=== PATIENT | male | born 1980 | race Caucasian/White ===

== ENCOUNTER 2018-03-08 11:15 | Emergency (ER) | payer BC, OTHER ==
[~2018-03-08] VITALS: Ht 175.3 cm; Wt 93.0 kg
[2018-03-08 11:20] VITALS: BP 152/96; PULSE 99; RESP 18; TEMP 97.7; O2SAT 96
[2018-03-08 11:25] VITALS: BP 152/96; PULSE 105; RESP 18
[2018-03-08 11:29] VITALS: O2SAT 96
[2018-03-08] MEDS ORDERED: SODIUM CHLORID 0.9% 500 ML INJ 500 ML IV ONE (11:30)
[2018-03-08] MEDS ORDERED: DIAZEPAM 10 MG TAB PO ONE (11:30)
[2018-03-08] MEDS ORDERED: KETOROLAC TROMETHAMINE 30 MG/ML (IVP) VIAL IV PUSH ONE (11:30)
--- NOTE | 2018-03-08 11:37 | RADRPT ---
EXAM DATE/TIME: 03/08/2018 11:24 [place] COMPARISON: No previous studies available for comparison. INDICATIONS : Chest pain and short of breath for 1 week. MEDICAL HISTORY : None. SURGICAL HISTORY : None. ENCOUNTER: Initial ACUITY: 1 week PAIN SCORE: 5/10 LOCATION: Bilateral chest FINDINGS: Portable AP view of the chest demonstrates a normal-sized cardiac silhouette. No effusion, consolidat ion, or pneumothorax is visualized. The bones and soft tissues demonstrate no acute abnormality. Bila teral nipple piercings are present. CONCLUSION: No acute cardiopulmonary abnormality is identified. Guero Rodriguez MD on March 08, 2018 at 11:34 Board Certified Radiologist. This report was verified electronically.
[2018-03-08 11:42] LABS: HEMATOCRIT 46.9 % (39.0-51.0); HEMOGLOBIN 15.6 GM/DL (13.0-17.0); MEAN CORPUSCULAR HEMOGLOBIN 29.8 PG (27.0-34.0); MEAN CORPUSCULAR HGB CONC 33.2 % (32.0-36.0); MEAN PLATELET VOLUME 8.4 FL (7.0-11.0); PLATELET COUNT 219 TH/MM3 (150-450); RED BLOOD COUNT 5.21 MIL/MM3 (4.50-5.90); RED CELL DISTRIBUTION WIDTH 12.7 % (11.6-17.2); WHITE BLOOD COUNT 9.4 TH/MM3 (4.0-11.0)
[2018-03-08] MEDS ORDERED: DICL1CAP3 PO (11:45)
[2018-03-08] MEDS ORDERED: CYCL10TA PO (11:45)
[2018-03-08] MEDS ORDERED: DIAZEPAM 5 MG TAB PO ONE (11:45)
[2018-03-08] MEDS ORDERED: OXYC1TAB35 PO (11:45)
[2018-03-08 11:53] LABS: CHLORIDE 101 MEQ/L (98-107); SODIUM (NA) 138 MEQ/L (136-145)
[2018-03-08 11:55] VITALS: BP 145/88; PULSE 88; RESP 17; O2SAT 98
[2018-03-08 11:56] LABS: CALCIUM 9.4 MG/DL (8.5-10.1)
[2018-03-08 11:57] LABS: ALBUMIN 4.4 GM/DL (3.4-5.0); BICARBONATE 30.6 MEQ/L (21.0-32.0); BLOOD UREA NITROGEN 17 MG/DL (7-18); GLUCOSE,RANDOM 102 MG/DL (74-106)
[2018-03-08 12:00] LABS: ALT (GPT) 128 U/L (12-78); AST (GOT) 60 U/L (15-37); GLOMERULAR FILTRATION RATE 76 ML/MIN (>89); INTERNATIONAL NORMALIZED RATIO 0.9 RATIO; PROTHROMBIN TIME - PATIENT 9.5 SEC (9.8-11.6)
[2018-03-08 12:01] LABS: TOTAL BILIRUBIN ADULT 0.8 MG/DL (0.2-1.0); TOTAL PROTEIN 8.3 GM/DL (6.4-8.2)
[2018-03-08 12:03] LABS: ALKALINE PHOSPHATASE 75 U/L (45-117); D-DIMER 0.33 MG/L FEU (0.00-0.50)
[2018-03-08 12:05] LABS: TROPONIN I LESS THAN 0.02 NG/ML (0.02-0.05)
[2018-03-08 12:11] LABS: LYMPHOCYTES 29 % (9-44); MONOCYTES 9 % (0-8); NEUTROPHIL # MANUAL DIFF 5.5 TH/MM3 (1.8-7.7); POLYS (SEG NEUTROPHILS) 59 % (16-70)
--- NOTE | 2018-03-08 12:56 | PD ---
HPI Chief Complaint: Chest Pain Time Seen by Provider: 11:21 Travel History International Travel<30 days: No Contact w/Intl Traveler<30days: No Traveled to known affect area: No History of Present Illness HPI Patient is a 37 year old male who comes in complaining of chest pain for 2-3 days. He says the pain is in his neck, his pectoralis muscle and his back. He tried taking Flexeril and oxycodone at home without relief. He says he has not been working out recently. He denies any injuries. He says that movement makes the pain worse. He denies shortness of breath. He denies nausea or vomiting. He denies any stimulant use or drug use. He denies family history of heart problems. Severity is mild to moderate. PFSH Past Medical History Medical other: Yes (CHRONIC BACK PAIN) Past Surgical History Other Surgery: Yes (BACK SURGERY WITH RODS) Social History Alcohol Use: Yes (OCCAS) Tobacco Use: Yes (OCCAS) Substance Use: No Allergies-Medications (Allergen,Severity, Reaction): Coded Allergies: No Known Allergies (Unverified , 03/08/18) Reported Meds & Prescriptions Reported Meds & Active Scripts Active Reported Oxycodone-Acetaminophen 7.5-325 mg Tab 1 Tab PO BID PRN Flexeril (Cyclobenzaprine HCl) 10 Mg Tab 10 Mg PO BID Zorvolex (Diclofenac) 18 Mg Cap 18 Mg PO BID Review of Systems Except as stated in HPI: all other systems reviewed are Neg General / Constitutional: No: Fever, Chills HENT: No: Headaches, Lightheadedness Cardiovascular: Positive: Chest Pain or Discomfort Respiratory: No: Shortness of Breath Gastrointestinal: No: Nausea, Vomiting Musculoskeletal: Positive: Myalgias Skin: No Rash, No Change in Pigmentation Neurologic: No: Weakness, Dizziness Physical Exam Narrative GENERAL: Awake and alert, in no acute distress. SKIN: Focused skin assessment warm/dry. No wounds or signs of infection. HEAD: Atraumatic. Normocephalic. EYES: Pupils equal and round. No scleral icterus. ENT: Mucous membranes pink and moist. NECK: Trachea midline. No JVD. Pain with turning of his head. CARDIOVASCULAR: Regular rate and rhythm. No murmur appreciated. RESPIRATORY: No accessory muscle use. Clear to auscultation. Breath sounds equal bilaterally. GASTROINTESTINAL: Abdomen soft, non-tender, nondistended. MUSCULOSKELETAL: No obvious deformities. No clubbing. No cyanosis. No edema. Pain is just caused by lifting his arms above his head. NEUROLOGICAL: Awake and alert. No obvious cranial nerve deficits. Motor grossly within normal limits. Normal speech. PSYCHIATRIC: Appropriate mood and affect; insight and judgment normal. Data Data Last Documented VS Vital Signs Date Time Temp Pulse Resp B/P (MAP) Pulse Ox O2 Delivery O2 Flow Rate FiO2 03/08/18 12:58 88 18 137/86 (103) 97 03/08/18 11:30 Room Air 03/08/18 11:20 97.7 Orders Orders Electrocardiogram (03/08/18 11:20) Complete Blood Count With Diff (03/08/18 11:20) Ckmb (Isoenzyme) Profile (03/08/18 11:20) Troponin I (03/08/18 11:20) Chest, Single Ap (03/08/18 11:20) Iv Access Insert/Monitor (03/08/18 11:20) Ecg Monitoring (03/08/18 11:20) Oxygen Administration (03/08/18 11:20) Oximetry (03/08/18 11:20) Act Partial Throm Time (Ptt) (03/08/18 11:20) Prothrombin Time / Inr (Pt) (03/08/18 11:20) Comprehensive Metabolic Panel (03/08/18 11:26) Ketorolac Inj (Toradol Inj) (03/08/18 11:30) Sodium Chlorid 0.9% 500 Ml Inj (Ns 500 M (03/08/18 11:30) Diazepam (Valium) (03/08/18 11:30) Diazepam (Valium) (03/08/18 11:45) D-Dimer (03/08/18 11:28) CKMB (03/08/18 11:28) CKMB% (03/08/18 11:28) Labs Laboratory Tests Test 03/08/18 11:28 White Blood Count 9.4 TH/MM3 Red Blood Count 5.21 MIL/MM3 Hemoglobin 15.6 GM/DL Hematocrit 46.9 % Mean Corpuscular Volume 90.0 FL Mean Corpuscular Hemoglobin 29.8 PG Mean Corpuscular Hemoglobin Concent 33.2 % Red Cell Distribution Width 12.7 % Platelet Count 219 TH/MM3 Mean Platelet Volume 8.4 FL CBC Comment AUTO DIFF Differential Total Cells Counted 100 Neutrophils % (Manual) 59 % Lymphocytes % 29 % Monocytes % 9 % Eosinophils % 3 % Neutrophils # (Manual) 5.5 TH/MM3 Differential Comment FINAL DIFF MANUAL Platelet Estimate NORMAL Platelet Morphology Comment NORMAL Prothrombin Time 9.5 SEC Prothromb Time International Ratio 0.9 RATIO Activated Partial Thromboplast Time 29.6 SEC D-Dimer Quantitative (PE/DVT) 0.33 MG/L FEU Blood Urea Nitrogen 17 MG/DL Creatinine 1.10 MG/DL Random Glucose 102 MG/DL Total Protein 8.3 GM/DL Albumin 4.4 GM/DL Calcium Level 9.4 MG/DL Alkaline Phosphatase 75 U/L Aspartate Amino Transf (AST/SGOT) 60 U/L Alanine Aminotransferase (ALT/SGPT) 128 U/L Total Bilirubin 0.8 MG/DL Sodium Level 138 MEQ/L Potassium Level 3.5 MEQ/L Chloride Level 101 MEQ/L Carbon Dioxide Level 30.6 MEQ/L Anion Gap 6 MEQ/L Estimat Glomerular Filtration Rate 76 ML/MIN Total Creatine Kinase 354 U/L Creatine Kinase MB 3.1 NG/ML Creatine Kinase MB % 0.9 % Troponin I LESS THAN 0.02 NG/ML MDM Medical Decision Making Medical Screen Exam Complete: Yes Emergency Medical Condition: Yes Medical Record Reviewed: Yes Interpretation(s) ECG shows sinus tachycardia at a rate of 101, incomplete right bundle branch block, no ST elevation or depression. Differential Diagnosis muscle strain vs muscle spasm vs ACS (unlikely) Narrative Course Patient is a 37-year-old male who comes in complaining of pain to his neck, chest and back. Pain appears to be very much musculoskeletal strain. Any turning of his neck seems to bring on the pain or movement of his shoulders. He does report that prior to this happening he was working on a rental property for a long time, including painting and he is left-handed and does everything with the left arm. IV established, labs sent. Labs show no acute abnormalities. Troponin and D- dimer are negative. Last 24 hours Impressions Chest X-Ray 03/08/18 1120 Signed Impressions: Service Date/Time: Thursday, March 08, 2018 11:24 - CONCLUSION: No acute cardiopulmonary abnormality is identified. Guero Rodriguez MD Given IVF, Toradol ,Valium He reports some improvement of symptoms. I believe this is musculoskeletal in nature. Patient would like to go home. He is comfortable with discharge at this time. Given a prescription for Valium, advised to be careful as it may make him drowsy. Advised to follow up with a primary care physician. advised to return to the ED as needed for any worsening symptoms. Diagnosis Primary Impression: Musculoskeletal strain Patient Instructions: General Instructions, Musculoskeletal Pain (ED) Additional Instructions: Make sure to stretch often. Apply heat as needed. Take ibuprofen for pain. He can take Valium to help with spasm, be careful as it may make you drowsy. Do not combine with Flexeril. Follow-up with a primary care doctor. Return to the ED as needed for any worsening symptoms. Scripts Diazepam (Valium) 10 Mg Tab 10 MG PO TID Y for MUSCLE SPASM, #10 TAB 0 Refills Prov: Sari Guerrero MD 03/08/18 Disposition: 01 DISCHARGE HOME Condition: Stable Sari Guerrero MD March 08, 2018 12:56
[2018-03-08 12:58] VITALS: BP 137/86; PULSE 88; RESP 18; O2SAT 97
[2018-03-08] MEDS ORDERED: DIAZ10 PO (13:15)
--- NOTE | 2018-03-08 15:15 | EKG ---
Date Performed: 03/08/2018 Time Performed: 11:20:14 PTAGE: 37 years EKG: SINUS TACHYCARDIA POSSIBLE LEFT ATRIAL ENLARGEMENT INDETERMINATE AXIS INCOMPLETE RIGHT BUND LE BRANCH BLOCK ABNORMAL RHYTHM ECG NO PREVIOUS TRACING DOCTOR: Franki Teran Interpretating Date/Time 03/08/2018 15:13:45
== END 2018-03-08 13:21 | disposition home or self-care (01) ==
LOC: PHED 11:15
DX: S23.421A Sprain of chondrosternal joint, initial encounter (principal); R00.0 Tachycardia, unspecified; I45.10 Unspecified right bundle-branch block; R94.31 Abnormal electrocardiogram [ECG] [EKG]; F17.200 Nicotine dependence, unspecified, uncomplicated; Z79.899 Other long term (current) drug therapy; X58.XXXA Exposure to other specified factors, initial encounter
CPT/HCPCS: 71045; 80053; 82550; 82552; 84484; 85007; 85027; 85379; 85610; 85730; 93005; 96361; 96374; 99285; J1885; J7040